=== PATIENT | male | born 1940 | race African-American/Black ===

== ENCOUNTER 2019-12-22 10:03 | Inpatient (IN) | payer BC, MEDICARE ==
[~2019-12-22] VITALS: Ht 182.9 cm; Wt 86.2 kg
[2019-12-22] MEDS ORDERED: VANCOMYCIN 1 G PREMIX 200 ML IV ONE (12:00)
[2019-12-22] MEDS ORDERED: PIPERACILLIN/TAZ 3.375G PREMIX 50 ML IV ONE (12:00)
[2019-12-22 12:59] LABS: HEMATOCRIT. 39.7 % (42.0-52.0); HEMOGLOBIN. 13.5 g/dL (14.0-18.0); MEAN CORPUSCULAR HEMOGLOBIN 29.4 pg (28.0-32.0); MEAN CORPUSCULAR VOLUME 86.9 fL (80.0-94.0); MEAN PLATELET VOLUME 7.3 fl (7.4-10.4); PLATELET 447 x1000/uL (130-400); RED BLOOD CELL COUNT 4.57 mill/uL (4.7-6.1); RED CELL DISTRIBUTION WIDTH 13.3 % (11.6-14.6)
[2019-12-22 13:14] LABS: PARTIAL THROMBOPLASTIN TIME 29.1 sec (23.4-31.0); PROTHROMBIN TIME 11.1 sec (9.6-11.0)
[2019-12-22 13:28] LABS: PLATELET ESTIMATE INCREASED
[2019-12-22 15:18] LABS: CHLORIDE 103 mEq/L (98-107)
[2019-12-22] MEDS ORDERED: SODIUM CHLORIDE 0.9% 1,000 ML IV ONE (16:15)
[2019-12-22] MEDS ORDERED: NA PHOS,M-B/NA PHOS,DI-BA ENEMA 118ML PR PRN (18:15)
[2019-12-22] MEDS ORDERED: ACETAMINOPHEN 325MG TABLET PO PRN (18:15)
[2019-12-22] MEDS ORDERED: ONDANSETRON HCL 4MG/2ML INJ IV PRN (18:15)
[2019-12-22] MEDS ORDERED: CLONIDINE 0.1MG TABLET PO PRN (18:15)
[2019-12-22] MEDS ORDERED: LORAZEPAM 2MG/ML CPJ IV PRN (18:15)
[2019-12-22] MEDS ORDERED: DOCUSATE SODIUM 100MG CAPSULE PO PRN (18:15)
[2019-12-22] MEDS ORDERED: GUAIFENESIN 200MG/10ML SUGAR FREE UDC PO PRN (18:15)
[2019-12-22] MEDS ORDERED: MORPHINE SULFATE 2 MG/ML CPJ (NOT FOR IM USE) IV PRN (18:15)
[2019-12-22] MEDS ORDERED: DIPHENHYDRAMINE 50MG/ML VIAL IV PRN (18:15)
[2019-12-22] MEDS ORDERED: HYDROCODONE/ACETAMINOPHEN 5/325MG TABLET PO PRN (18:15)
[2019-12-22] MEDS ORDERED: MAGNESIUM/ALUMINUM HYDROXIDE/SIMETHICONE 30ML UDC PO PRN (18:15)
[2019-12-22] MEDS ORDERED: IPRATROPIUM/ALBUTEROL 0.5-3(2.5)MG/3ML NEB NEB PRN (18:15)
[2019-12-22 19:52] LABS: CLARITY URINE CLEAR (CLEAR); COLOR URINE YELLOW (YELLOW); KETONES URINE TRACE (NEGATIVE); LEUKOCYTE ESTERASE URINE TRACE (NEGATIVE); NITRITE URINE NEGATIVE (NEGATIVE); OCCULT BLOOD URINE NEGATIVE (NEGATIVE); PROTEIN URINE NEGATIVE (NEGATIVE); SPECIFIC GRAVITY URINE 1.023 (1.005-1.030)
[2019-12-22 21:37] LABS: CHLORIDE 103 mEq/L (98-107)
[2019-12-23] VITALS: BP 150/52
[2019-12-23] MEDS: VANCOMYCIN 750 MG PREMIX 150 ML IV SCH ×2 (03:46→15:12)
[2019-12-23 04:00] VITALS: BP 128/50
[2019-12-23] MEDS: PIPERACILLIN/TAZOBACTAM 3.375 G in DEXT 5% WATER 100 ML IV SCH ×3 (05:28→22:48)
[2019-12-23 07:54] LABS: LDL CHOLESTEROL 72 mg/dL (5-100)
[2019-12-23 07:56] LABS: T4 FREE 1.21 ng/dL (0.76-1.46)
[2019-12-23 07:57] LABS: HDL CHOLESTEROL 36 mg/dL (40-59)
[2019-12-23 08:15] VITALS: BP 122/47
[2019-12-23] MEDS: ENOXAPARIN 40MG/0.4ML SYR SUBCUT SCH (08:58)
[2019-12-23] MEDS: FUROSEMIDE 40MG/4ML VIAL IVP SCH (08:58)
[2019-12-23] MEDS: ASPIRIN 81MG EC TABLET PO SCH (09:08)
[2019-12-23 12:00] VITALS: BP 128/61
[2019-12-23 16:00] VITALS: BP 125/54
[2019-12-23 20:00] VITALS: BP 150/67
[2019-12-24] VITALS: BP 115/54
[2019-12-24 04:00] VITALS: BP 143/67
[2019-12-24] MEDS: VANCOMYCIN 750 MG PREMIX 150 ML IV SCH ×2 (04:02→16:21)
[2019-12-24] MEDS: PIPERACILLIN/TAZOBACTAM 3.375 G in DEXT 5% WATER 100 ML IV SCH ×4 (05:34→23:52)
[2019-12-24 06:27] LABS: HEMATOCRIT. 32.6 % (42.0-52.0); MEAN CORPUSCULAR HEMOGLOBIN 29.3 pg (28.0-32.0); MEAN CORPUSCULAR VOLUME 86.9 fL (80.0-94.0); MEAN PLATELET VOLUME 7.3 fl (7.4-10.4); PLATELET 380 x1000/uL (130-400); RED BLOOD CELL COUNT 3.75 mill/uL (4.7-6.1); RED CELL DISTRIBUTION WIDTH 13.2 % (11.6-14.6)
[2019-12-24 06:57] LABS: CHLORIDE 104 mEq/L (98-107)
[2019-12-24 07:35] VITALS: BP 135/63
[2019-12-24] MEDS: ENOXAPARIN 40MG/0.4ML SYR SUBCUT SCH (09:34)
[2019-12-24] MEDS: ASPIRIN 81MG EC TABLET PO SCH (09:35)
[2019-12-24] MEDS: FUROSEMIDE 40MG/4ML VIAL IVP SCH (09:35)
[2019-12-24] MEDS ORDERED: POTASSIUM CHLORIDE 20MEQ TABLET SR PO NR (10:45)
[2019-12-24 12:00] VITALS: BP 127/61
[2019-12-24 13:56] LABS: PLATELET ESTIMATE NORMAL
[2019-12-24 16:00] VITALS: BP 132/60
[2019-12-24 20:00] VITALS: BP 118/60
[2019-12-25] VITALS: BP 147/59
[2019-12-25 04:00] VITALS: BP 148/62
[2019-12-25] MEDS ORDERED: VANCOMYCIN 1250MG in DEXTROSE 5% WATER 250ML IV SCH (04:00)
[2019-12-25] MEDS: PIPERACILLIN/TAZOBACTAM 3.375 G in DEXT 5% WATER 100 ML IV SCH ×4 (06:25→23:29)
[2019-12-25 08:00] VITALS: BP 176/84
[2019-12-25] MEDS: FUROSEMIDE 40MG/4ML VIAL IVP SCH (09:40)
[2019-12-25] MEDS: ASPIRIN 81MG EC TABLET PO SCH (09:41)
[2019-12-25] MEDS: ENOXAPARIN 40MG/0.4ML SYR SUBCUT SCH (09:41)
[2019-12-25 12:00] VITALS: BP 128/56
[2019-12-25 16:00] VITALS: BP 133/60
[2019-12-25] MEDS: VANCOMYCIN 1 G PREMIX 200 ML IV SCH (19:12)
[2019-12-25 20:00] VITALS: BP 117/56
[2019-12-26 00:05] VITALS: BP 130/58
[2019-12-26 04:00] VITALS: BP 141/69
[2019-12-26] MEDS: PIPERACILLIN/TAZOBACTAM 3.375 G in DEXT 5% WATER 100 ML IV SCH ×3 (05:27→18:23)
[2019-12-26 08:00] VITALS: BP 141/63
[2019-12-26] MEDS: FUROSEMIDE 40MG/4ML VIAL IVP SCH (08:46)
[2019-12-26] MEDS: ASPIRIN 81MG EC TABLET PO SCH (08:46)
[2019-12-26] MEDS: ENOXAPARIN 40MG/0.4ML SYR SUBCUT SCH (08:47)
[2019-12-26 12:00] VITALS: BP 112/72
[2019-12-26 16:00] VITALS: BP 132/54
[2019-12-26] MEDS: VANCOMYCIN 1 G PREMIX 200 ML IV SCH (16:11)
[2019-12-26 20:00] VITALS: BP 144/65
[2019-12-27] VITALS: BP 142/62
[2019-12-27] MEDS: PIPERACILLIN/TAZOBACTAM 3.375 G in DEXT 5% WATER 100 ML IV SCH ×3 (00:12→13:15)
[2019-12-27 04:00] VITALS: BP 140/63
[2019-12-27] MEDS: VANCOMYCIN 1 G PREMIX 200 ML IV SCH ×2 (06:00→23:11)
[2019-12-27 08:00] VITALS: BP 134/65
[2019-12-27] MEDS: FUROSEMIDE 40MG/4ML VIAL IVP SCH (10:03)
[2019-12-27] MEDS: ENOXAPARIN 40MG/0.4ML SYR SUBCUT SCH (10:04)
[2019-12-27] MEDS: ASPIRIN 81MG EC TABLET PO SCH (10:04)
[2019-12-27 12:00] VITALS: BP 125/71
[2019-12-27 16:00] VITALS: BP 137/73
[2019-12-27 18:33] LABS: CHLORIDE 99 mEq/L (98-107)
[2019-12-27 20:00] VITALS: BP 157/76
[2019-12-27] MEDS: SULFAMETHOXAZOLE/TRIMETHOPRIM 800/160MG TABLET PO SCH (21:38)
[2019-12-28] VITALS: BP 164/70
[2019-12-28 04:00] VITALS: BP 154/65
[2019-12-28 06:25] LABS: BASOPHILS % 0.8 % (0.0-2.0); EOSINOPHILS % 2.2 % (0.0-5.0); HEMATOCRIT. 36.2 % (42.0-52.0); HEMOGLOBIN. 12.3 g/dL (14.0-18.0); LYMPHOCYTES % 13.3 % (20.0-50.0); MEAN CORPUSCULAR HEMOGLOBIN 29.6 pg (28.0-32.0); MEAN CORPUSCULAR VOLUME 87.3 fL (80.0-94.0); MEAN PLATELET VOLUME 6.9 fl (7.4-10.4); NEUTROPHILS % 75.7 % (40.0-76.0); PLATELET 447 x1000/uL (130-400); RED BLOOD CELL COUNT 4.15 mill/uL (4.7-6.1); RED CELL DISTRIBUTION WIDTH 13.3 % (11.6-14.6)
[2019-12-28 06:28] LABS: CHLORIDE 103 mEq/L (98-107)
[2019-12-28 08:00] VITALS: BP 131/55
[2019-12-28] MEDS: ASPIRIN 81MG EC TABLET PO SCH (08:40)
[2019-12-28] MEDS: SULFAMETHOXAZOLE/TRIMETHOPRIM 800/160MG TABLET PO SCH (08:40)
[2019-12-28] MEDS: ENOXAPARIN 40MG/0.4ML SYR SUBCUT SCH (08:40)
[2019-12-28] MEDS: FUROSEMIDE 40MG/4ML VIAL IVP SCH (08:40)
[2019-12-28 12:00] VITALS: BP 137/63
[2019-12-28 14:27] VITALS: BP 137/63
[2019-12-28 16:00] VITALS: BP 125/61
== END 2019-12-28 17:56 | disposition home health service (06) | DRG 603 ==
LOC: ER 10:03 → 7WST 16:36 → EDBEDREQ 16:50 → EDBEDREQTM 16:50 → EDBEDREQ 16:59 → ENRESERV 22:59
PROVIDERS: ADMIT Internal Medicine; ATTEND Internal Medicine
DX: L03.115 Cellulitis of right lower limb (principal); R65.10 Systemic inflammatory response syndrome (SIRS) of non-infectious origin without acute organ dysfunction; L03.116 Cellulitis of left lower limb; I10 Essential (primary) hypertension; I87.8 Other specified disorders of veins; R26.9 Unspecified abnormalities of gait and mobility; D47.3 Essential (hemorrhagic) thrombocythemia; R62.7 Adult failure to thrive; Z87.891 Personal history of nicotine dependence; Z68.25 Body mass index [BMI] 25.0-25.9, adult
CPT/HCPCS: 36415; 71045; 80048; 80053; 80061; 80202; 81003; 83605; 83880; 84145; 84439; 84443; 84484; 85025; 87070; 87077; 87186; 93005; 93970; 96365; 97110; 97162; 97166; 99285; J1650; J1940; J2060; J2543; J3370; J7030; J7060